=== PATIENT | male | born 1950 | race Caucasian/White ===

== ENCOUNTER 2020-08-12 16:53 | Outpatient (CLI) | payer OTHER | END 2020-08-12 17:05 | disposition home or self-care (01) | LOC: LAB 16:53 → EDBD 16:53 → LAB 17:05 | DX: M25.531 Pain in right wrist (principal); M85.88 Other specified disorders of bone density and structure, other site; E55.9 Vitamin D deficiency, unspecified ==

== ENCOUNTER 2021-08-20 07:43 | Outpatient (CLI) | payer OTHER | END 2021-08-20 07:44 | disposition home or self-care (01) | LOC: NUCLEAR 07:43 | PROVIDERS: ATTEND Internal Medicine Cardiovascular Disease | DX: R07.89 Other chest pain (principal); I50.1 Left ventricular failure, unspecified | CPT/HCPCS: 78452; 93017; A9500 ==

== ENCOUNTER 2023-06-22 11:23 | Outpatient (CLI) | payer OTHER | END 2023-06-22 11:30 | disposition home or self-care (01) | LOC: NUCLEAR 11:23 | PROVIDERS: ATTEND Internal Medicine Cardiovascular Disease | DX: Z86.73 Personal history of transient ischemic attack (TIA), and cerebral infarction without residual deficits (principal) ==